=== PATIENT | female | born 1970 | race Caucasian/White ===

== ENCOUNTER 2018-05-12 11:28 | Outpatient (CLI) | payer MEDICAID ==
[2018-05-12 17:59] LABS: BASOPHILS # (AUTO) 0.1 10^3/uL (0.0-0.1); BASOPHILS % (AUTO) 0.8 %; EOSINOPHILS % (AUTO) 0.1 %; HGB - HEMOGLOBIN 13.6 g/dL (12.0-16.0); LYMPHOCYTES # (AUTO) 1.2 10^3/uL (1.5-3.5); LYMPHOCYTES % (AUTO) 18.2 %; MEAN CORPUSCULAR HEMOGLOBIN 32.7 pg (27.0-31.0); MEAN CORPUSCULAR HGB CONC 34.6 g/dL (32.0-36.0); MEAN CORPUSCULAR VOLUME 94.3 fL (81.0-99.0); MEAN PLATELET VOLUME 7.7 fL (7.9-10.8); MONOCYTES # (AUTO) 0.2 10^3/uL (0.0-1.0); MONOCYTES % (AUTO) 3.8 %; NEUTROPHILS % (AUTO) 77.1 %; PLT - PLATELET COUNT 249 10^3/uL (130-450); RED BLOOD COUNT 4.18 10^6/uL (4.20-5.40); WHITE BLOOD COUNT 6.5 x10^3/uL (4.8-10.8)
[2018-05-12 18:10] LABS: HB2 TOTAL 15.1 g/dL; HEMOGLOBIN A1C 0.48 g/dL; HEMOGLOBIN A1C % 5.1 % (4.6-6.2)
[2018-05-12 18:12] LABS: ALBUMIN 5.1 g/dL (3.2-5.5); ALBUMIN/GLOBULIN RATIO 1.5 (1.0-2.2); ALKALINE PHOSPHATASE 66 IU/L (42-121); ALT ALANINE AMINOTRANSFERASE 14 IU/L (10-60); AST ASPARTATE AMINOTRANSFERASE 18 IU/L (10-42); BILIRUBIN,TOTAL 0.7 mg/dL (0.2-1.0); BUN - BLOOD UREA NITROGEN 12 mg/dL (6-20); CALCIUM 9.4 mg/dL (8.5-10.3); CARBON DIOXIDE - CO2 24 mmol/L (21-32); CHLORIDE 104 mmol/L (101-111); CHOL/HDL RATIO 2.9 (<4.4); CHOLESTEROL 205 mg/dL; CREATININE 0.6 mg/dL (0.4-1.0); GFR - MDRD 108 (>89); GLUCOSE 94 mg/dL (70-100); HDL CHOLESTEROL 71 mg/dL; SODIUM 139 mmol/L (135-145); TOTAL PROTEIN 8.4 g/dL (6.7-8.2)
[2018-05-12 18:58] LABS: LDL CHOLESTEROL,DIRECT 122 mg/dL; LDLD/HDL RATIO 1.7 (<4.4)
== END 2018-05-12 11:29 | disposition home or self-care (01) ==
LOC: LAB.F 11:28
PROVIDERS: ATTEND Registered Nurse
DX: F41.8 Other specified anxiety disorders (principal); N60.19 Diffuse cystic mastopathy of unspecified breast; R61 Generalized hyperhidrosis; N80.9 Endometriosis, unspecified
CPT/HCPCS: 36415; 80050; 80061; 83036; 83721

== ENCOUNTER 2018-09-01 09:35 | Outpatient (CLI) | payer MEDICAID ==
--- NOTE | 2018-09-01 13:51 | Ultrasound Report ---
Reason: FIBROCYSTIC BREAST DISEASE Procedure Date: 09/01/2018 Accession Number: [id number] / [id number] Procedure: US - Breast Unilateral Limited CPT Code: FULL RESULT: EXAM: Diagnostic Dig Bilat, Breast Unilateral Left Ultrasound, Breast Unilateral Right Ultrasound DATE: 09/01/2018 11:39 AM CLINICAL HISTORY: History of recurrent cysts requiring multiple aspirations now with increasing breast tenderness and fullness. BILATERAL MAMMOGRAPHY: TECHNIQUE: (B) - Bilateral CC and MLO views were obtained. COMPARISON: [facility] 07/16/2017 PARENCHYMAL PATTERN: (D) - The breasts demonstrate heterogeneously dense fibroglandular parenchyma bilaterally. FINDINGS: Innumerable right greater than left masses of varying size are seen. Innumerable scattered bilateral calcifications are also present. There are no suspicious areas of distortion or skin thickening. Multiple bilateral axillary lymph nodes are identified. BILATERAL BREAST ULTRASOUND: TECHNIQUE: Targeted ultrasound was performed of the bilateral breasts with saved static images reviewed. Color Doppler was employed as appropriate. FINDINGS: Right: Innumerable simple cysts of varying sizes are seen scattered through the right breast . No solid mass is seen. Left: Less numerous and smaller simple cysts of varying size are seen scattered throughout the left breast. No solid mass is seen. IMPRESSION: Benign findings. BI-RADS category 2. RECOMMENDATION: Routine screening mammography in one year. Clinical follow-up of breast cysts and pain with ultrasound guided cyst aspirations as needed. BIRADS CATEGORY 2: Benign findings STANDARD QUALIFYING STATEMENTS: 1. This examination was not reviewed with the aid of Computer-Aided Detection (CAD). 2. A negative or benign imaging report should not preclude biopsy if clinically suspicious findings are present. 3. Dense breasts may obscure an underlying neoplasm. 4. This examination was reviewed without the aid of 3D breast imaging (tomosynthesis).
== END 2018-09-01 09:36 | disposition home or self-care (01) ==
LOC: DI 09:35
PROVIDERS: ATTEND Nurse Practitioner Obstetrics & Gynecology
DX: N60.12 Diffuse cystic mastopathy of left breast (principal); N60.11 Diffuse cystic mastopathy of right breast
CPT/HCPCS: 76642; 77066